=== PATIENT | female | born 1975 | race African-American/Black ===

== ENCOUNTER → 2021-03-29 | Outpatient (CLI) | payer BC ==
[~2021-03-29] MED LIST: AMBIEN 5 MG TABL5 MG PO; AUGMENTIN 875875 MG; FISH OIL 1,0001 EAC5 PO; FISH OIL 1,001000 M1 PO; FLAGYL500 MG; HYDROCODON-ACE1 EAC5; IBUPROFEN 800800 M1; MOBIC7.5 M1 PO; ST. JOHN'S WOR150 MG PO
== END ==
LOC: BC
PROVIDERS: ATTEND Family Medicine
DX: Z12.31 Encounter for screening mammogram for malignant neoplasm of breast (principal); N64.89 Other specified disorders of breast

== ENCOUNTER → 2021-03-29 | Outpatient (CLI) | payer OTHER | LOC: CAT | PROVIDERS: ATTEND Family Medicine | DX: Z13.6 Encounter for screening for cardiovascular disorders (principal) ==